=== PATIENT | male | born 1945 | race Caucasian/White ===

== ENCOUNTER → 2016-09-26 | Emergency (ER) | payer MEDICARE, BC ==
[~2016-09-26] VITALS: Ht 170.2 cm; Wt 74.8 kg
[~2016-09-26] MED LIST: IBUPROFEN 400 MG TABLET ONE; IBUPROFEN 400 MG TABLET PO ONE
[2016-09-26 23:36] VITALS: BP 127/18
== END | disposition home or self-care (01) ==
LOC: ER 23:27
DX: M25.561 Pain in right knee (principal); I10 Essential (primary) hypertension; N40.0 Benign prostatic hyperplasia without lower urinary tract symptoms; Z88.1 Allergy status to other antibiotic agents; Z88.0 Allergy status to penicillin
CPT/HCPCS: 73564-TC; A4606; Z7610